=== PATIENT | female | born 1965 | race Caucasian/White ===

== ENCOUNTER 2017-06-10 12:26 | Day surgery (SDC) | payer OTHER ==
[~2017-06-10 12:26] MED LIST: ASACOL400 MG PO; ASPIR 8181 M1 PO; COD LIVER OIL1 EACH; LEVOTHROID,S0.025 MG PO; MIRALAX17 GM PO; VITAMIN C500 M1
== END 2017-06-10 16:40 | disposition home or self-care (01) ==
LOC: CATH 12:26
PROC: 0JPT0PZ Removal of Cardiac Rhythm Related Device from Trunk Subcutaneous Tissue and Fascia, Open Approach (ICD-10-PCS; principal; 2017-06-10)
DX: T82.111A Breakdown (mechanical) of cardiac pulse generator (battery), initial encounter (principal); I44.2 Atrioventricular block, complete; Q90.9 Down syndrome, unspecified; Z79.82 Long term (current) use of aspirin
CPT/HCPCS: J0690; J1200; J2250; J3010; S0020